=== PATIENT | male | born 1995 | race Hispanic/Latino ===

== ENCOUNTER 2019-07-15 23:23 | Emergency (ER) | payer BC ==
[~2019-07-15] VITALS: Ht 94 cm; Wt 108.9 kg
== END 2019-07-16 00:10 | disposition home or self-care (01) ==
LOC: FSED 23:23
DX: R41.82 Altered mental status, unspecified (principal); S06.0X0A Concussion without loss of consciousness, initial encounter; V53.6XXA Passenger in pick-up truck or van injured in collision with car, pick-up truck or van in traffic accident, initial encounter; Y92.488 Other paved roadways as the place of occurrence of the external cause
CPT/HCPCS: 99282